=== PATIENT | male | born 1990 | race Two or more races ===

== ENCOUNTER 2018-08-22 16:22 | Emergency (ER) | payer SELFPAY ==
[~2018-08-22] VITALS: Ht 170.2 cm; Wt 68.0 kg
[2018-08-22 19:36] VITALS: BP 142/80
== END 2018-08-22 19:37 | disposition home or self-care (01) ==
LOC: ER 16:22
DX: S93.401A Sprain of unspecified ligament of right ankle, initial encounter (principal); S13.9XXA Sprain of joints and ligaments of unspecified parts of neck, initial encounter; S40.022A Contusion of left upper arm, initial encounter; V43.52XA Car driver injured in collision with other type car in traffic accident, initial encounter; Y93.I9 Activity, other involving external motion; Y92.488 Other paved roadways as the place of occurrence of the external cause; Y99.8 Other external cause status
CPT/HCPCS: 70450; 72125; 73600